=== PATIENT | male | born 1960 | race Caucasian/White ===

== ENCOUNTER 2022-08-30 11:05 | Outpatient (CLI) | payer OTHER | END 2022-08-30 12:00 | disposition home or self-care (01) | LOC: TOM 11:05 | PROVIDERS: ATTEND Internal Medicine | DX: I10 Essential (primary) hypertension (principal) ==

== ENCOUNTER 2024-07-05 09:59 | Outpatient (CLI) | payer OTHER ==
[2024-07-05 11:14] LABS: HEMATOCRIT 44.2 % (39.0-48.0); HEMOGLOBIN 15.4 g/dL (13-16.00); MEAN CELL VOLUME 85.7 fL (80.0-100.00); MEAN CORPUSCULAR HEMOGLOBIN 29.8 pg (27.00-32.0); MEAN CORPUSCULAR HGB CONC 34.8 g/dl (32.0-36.0); PLATELET COUNT 289 K/uL (150-450); RED BLOOD COUNT 5.16 M/uL (4.00-6.00); RED CELL DISTRIBUTION WIDTH 13.5 % (11.5-14.5)
[2024-07-05 11:53] LABS: INR 1.03; PARTIAL THROMBOPLASTIN TIME 26.6 SECONDS (22.0-34.0); PROTHROMBIN TIME 10.8 SECONDS (9.0-11.5)
[2024-07-05 12:06] LABS: ALBUMIN 3.9 gm/dL (3.4-5.0); BILIRUBIN TOTAL 0.59 mg/dL (0.3-1.2); CHOL HDL RATIO 4.1 (0-5.0); CREATININE SERUM 0.83 mg/dL (0.70-1.30); FERRITIN 79.3 NG/ML (26-388); GFR 93.57; GLOBULINA 3.7 G/DL (2.4-3.5); POTASSIUM 4.54 mEq/L (3.5-5.1); TOTAL PROTEIN 7.6 gm/dL (6.4-8.2); TSH 2.28 uIU/mL (0.358-3.74)
== END 2024-07-05 10:06 | disposition home or self-care (01) ==
LOC: LAB 09:59
DX: K76.0 Fatty (change of) liver, not elsewhere classified (principal); K75.81 Nonalcoholic steatohepatitis (NASH); K74.69 Other cirrhosis of liver; K76.9 Liver disease, unspecified

== ENCOUNTER 2024-07-05 10:52 | Outpatient (CLI) | payer OTHER | END 2024-07-05 10:58 | disposition home or self-care (01) | LOC: SONOGRAMA 10:52 | DX: K76.0 Fatty (change of) liver, not elsewhere classified (principal) ==

== ENCOUNTER 2024-08-09 10:21 | Outpatient (CLI) | payer OTHER ==
[2024-08-09 11:12] LABS: HEMATOCRIT 44.9 % (39.0-48.0); HEMOGLOBIN 15.1 g/dL (13-16.00); MEAN CELL VOLUME 86.8 fL (80.0-100.00); MEAN CORPUSCULAR HEMOGLOBIN 29.1 pg (27.00-32.0); MEAN CORPUSCULAR HGB CONC 33.5 g/dl (32.0-36.0); PLATELET COUNT 274 K/uL (150-450); RED BLOOD COUNT 5.18 M/uL (4.00-6.00); RED CELL DISTRIBUTION WIDTH 13.4 % (11.5-14.5)
[2024-08-09 12:41] LABS: ERYTHROCYTE SEDIMENTATION RATE 4 mm/hr
[2024-08-09 12:49] LABS: ALBUMIN 3.9 gm/dL (3.4-5.0); BILIRUBIN TOTAL 0.72 mg/dL (0.3-1.2); CHOL HDL RATIO 4.2 (0-5.0); CREATININE SERUM 0.78 mg/dL (0.70-1.30); GFR 100.21; GLOBULINA 3.5 G/DL (2.4-3.5); POTASSIUM 4.76 mEq/L (3.5-5.1); TOTAL PROTEIN 7.4 gm/dL (6.4-8.2)
== END 2024-08-09 10:27 | disposition home or self-care (01) ==
LOC: LAB 10:21
PROVIDERS: ATTEND Internal Medicine
DX: B18.1 Chronic viral hepatitis B without delta-agent (principal); E78.9 Disorder of lipoprotein metabolism, unspecified; K76.0 Fatty (change of) liver, not elsewhere classified; R79.89 Other specified abnormal findings of blood chemistry; R31.29 Other microscopic hematuria; Z68.27 Body mass index [BMI] 27.0-27.9, adult

== ENCOUNTER 2024-09-27 10:26 | Outpatient (CLI) | payer OTHER | END 2024-09-27 10:45 | disposition home or self-care (01) | LOC: MRI 10:26 | PROVIDERS: ATTEND Orthopaedic Surgery Sports Medicine | DX: M25.562 Pain in left knee (principal) | CPT/HCPCS: 73718 ==

== ENCOUNTER 2025-03-17 12:29 | Outpatient (CLI) | payer OTHER ==
[2025-03-17 13:18] LABS: HEMATOCRIT 44.1 % (39.0-48.0); HEMOGLOBIN 15.2 g/dL (13-16.00); MEAN CELL VOLUME 86.3 fL (80.0-100.00); MEAN CORPUSCULAR HEMOGLOBIN 29.7 pg (27.00-32.0); MEAN CORPUSCULAR HGB CONC 34.4 g/dl (32.0-36.0); PLATELET COUNT 246 K/uL (150-450); RED BLOOD COUNT 5.11 M/uL (4.00-6.00); RED CELL DISTRIBUTION WIDTH 13.5 % (11.5-14.5)
[2025-03-17 13:22] LABS: URINE APPEARANCE Clear; URINE BILIRRUBIN Negative (NEGATIVE); URINE BLOOD Negative; URINE COLOR Dark Yellow; URINE GLUCOSE Negative (NEGATIVE); URINE KETONE Negative (NEGATIVE); URINE LEUKOCYTE Negative; URINE NITRATE Negative; URINE PROTEIN Trace (NEGATIVE)
[2025-03-17 13:23] LABS: URINE RBC 44.6 uL (0.0-20.8)
[2025-03-17 13:27] LABS: URINE EPITHELIAL CELLS 0.6 uL (0.0-38.8); URINE WBC 0.7 uL (0.0-23.2)
[2025-03-17 13:31] LABS: ERYTHROCYTE SEDIMENTATION RATE 9 mm/hr
[2025-03-17 13:35] LABS: INR 1.04; PARTIAL THROMBOPLASTIN TIME 25.9 SECONDS (22.0-34.0); PROTHROMBIN TIME 11.3 SECONDS (9.0-11.5)
[2025-03-17 14:12] LABS: ALBUMIN 3.7 gm/dL (3.4-5.0); BILIRUBIN TOTAL 0.78 mg/dL (0.3-1.2); CALCIUM 8.8 mg/dL (8.5-10.1); CHOL HDL RATIO 4.8 (0-5.0); CREATININE SERUM 0.74 mg/dL (0.70-1.30); GFR 106.48; GLOBULINA 3.3 G/DL (2.4-3.5); POTASSIUM 4.11 mEq/L (3.5-5.1); PROSTATIC SPECIFIC ANTIGEN 1.01 NG/ML (0.010-4.00); T4 FREE 0.93 NG/ML (0.76-1.46); TSH 2.38 uIU/mL (0.358-3.74)
[2025-03-17 14:42] LABS: FOLIC ACID 12.98 ng/ml (4.78-20); VITAMIN D3 25 HYDROXY 33.98 ng/ml (30-120)
== END 2025-03-17 12:30 | disposition home or self-care (01) ==
LOC: LAB 12:29
PROVIDERS: ATTEND Internal Medicine
DX: E11.69 Type 2 diabetes mellitus with other specified complication (principal); E03.4 Atrophy of thyroid (acquired); E03.9 Hypothyroidism, unspecified; E55.9 Vitamin D deficiency, unspecified; D64.9 Anemia, unspecified; I10 Essential (primary) hypertension; E78.2 Mixed hyperlipidemia; M06.4 Inflammatory polyarthropathy; M06.9 Rheumatoid arthritis, unspecified; E53.8 Deficiency of other specified B group vitamins; N39.0 Urinary tract infection, site not specified; D68.8 Other specified coagulation defects; D68.9 Coagulation defect, unspecified; N40.0 Benign prostatic hyperplasia without lower urinary tract symptoms

== ENCOUNTER 2025-10-16 12:04 | Outpatient (CLI) | payer OTHER | END 2025-10-16 12:09 | disposition home or self-care (01) | LOC: TOM 12:04 | PROVIDERS: ATTEND Internal Medicine | DX: R06.00 Dyspnea, unspecified (principal); R91.8 Other nonspecific abnormal finding of lung field ==